=== PATIENT | male | born 1980 | race Caucasian/White ===

== ENCOUNTER → 2019-04-27 | Emergency (ER) | payer OTHER ==
[~2019-04-27] VITALS: Ht 165.1 cm; Wt 80.7 kg
[~2019-04-27] MED LIST: MOBIC15 MG PO; ZESTRIL40 M1
== END | disposition home or self-care (01) ==
LOC: ER 21:59
DX: M79.642 Pain in left hand (principal); M79.641 Pain in right hand; M54.2 Cervicalgia

== ENCOUNTER 2019-09-02 00:49 | Emergency (ER) | payer OTHER ==
[~2019-09-02] VITALS: Ht 165.1 cm; Wt 81.6 kg
[2019-09-02] MEDS ORDERED: TRAMADOL HCL50 MG (01:07)
[2019-09-02] MEDS ORDERED: ALEVE220 M1 (01:07)
[2019-09-02] MEDS ORDERED: TYLENOL EXTRA500 MG (01:07)
[2019-09-02] MEDS ORDERED: LYRICA50 MG (01:07)
== END 2019-09-02 04:35 | disposition home or self-care (01) ==
LOC: ER 00:49
DX: I16.0 Hypertensive urgency (principal); I10 Essential (primary) hypertension

== ENCOUNTER 2019-10-08 15:35 | Emergency (ER) | payer OTHER ==
[~2019-10-08] VITALS: Ht 165.1 cm; Wt 81.6 kg
[~2019-10-08 15:35] MED LIST changes: +ALEVE220 M1; +LYRICA50 MG; +TRAMADOL HCL50 MG; +TYLENOL EXTRA500 MG
== END 2019-10-08 17:24 | disposition home or self-care (01) ==
LOC: ER 15:35
DX: S90.412A Abrasion, left great toe, initial encounter (principal); W26.8XXA Contact with other sharp object(s), not elsewhere classified, initial encounter; Y93.89 Activity, other specified; Y92.69 Other specified industrial and construction area as the place of occurrence of the external cause; Y99.8 Other external cause status

== ENCOUNTER 2019-10-30 16:20 | Emergency (ER) | payer OTHER ==
[~2019-10-30] VITALS: Ht 165.1 cm; Wt 82.6 kg
== END 2019-10-30 23:48 | disposition home or self-care (01) ==
LOC: ER 16:20
DX: M79.18 Myalgia, other site (principal); M54.2 Cervicalgia; M25.512 Pain in left shoulder; M25.511 Pain in right shoulder; Z03.818 Encounter for observation for suspected exposure to other biological agents ruled out; R51 Headache; R50.9 Fever, unspecified; R31.29 Other microscopic hematuria

== ENCOUNTER 2019-11-10 14:30 | Emergency (ER) | payer OTHER ==
[~2019-11-10] VITALS: Ht 172.7 cm; Wt 79.4 kg
== END 2019-11-10 19:55 | disposition home or self-care (01) ==
LOC: ER 14:30
DX: R07.89 Other chest pain (principal); F41.8 Other specified anxiety disorders